=== PATIENT | male | born 1975 | race Caucasian/White ===

== ENCOUNTER 2018-02-24 14:37 | Observation (INO) | payer BC ==
[2018-02-24] MEDS ORDERED: Iopamidol 755 Mg/ML 100 ML Bottle IV ONE (14:44)
--- NOTE | 2018-02-24 15:31 | CT ---
INDICATION: Left lower quadrant abdominal pain times three days. CT ABDOMEN AND PELVIS WITH CONTRAST: Spiral 2.5 mm axial sections were obtained through the abdomen and pelvis with 100 mL Isovue 370 at 2 mL/second, no oral contrast was utilized. Examination was obtained 02/24/2018 and is compared with 03/02/2015. Total exam DLP = 1,371.45 mGy-cm. Lower lung amaya and pleural spaces visualized appeared normal. Liver, gallbladder, adrenals, kidneys, spleen, and pancreas were unremarkable, except to note some minimal fatty replacement of the pancreas, perhaps slightly regressive compared with the previous study. No retroperitoneal mass was seen. The appendix is absent, compatible with history of its removal. Descending and to a slightly greater extent sigmoid diverticulosis is noted with an area of diverticulitis at the proximal sigmoid colon. There is pericolonic fat stranding, compatible with localized peritonitis. No definite free air or abscess formation was identified - no perforation was suggested at this time. No obstruction of bowel was seen with gas and some stool in the rectosigmoid and rectal area. IMPRESSION: Proximal sigmoid diverticulitis with localized peritonitis. Report was called to Dr. Chapin Rausch at 1510 hours on 02/24/2018. Subsequently, the patient was taken to wait at the ER waiting room. RICHARD
--- NOTE | 2018-02-24 16:57 | PCM.HP ---
H&P History of Present Illness - General Date of Service: 02/24/18 Admit Problem/Dx: Admission Diagnosis/Problem Admission Diagnosis/Problem Diverticulitis Source of Information: Patient History Limitations: Reports: No Limitations - History of Present Illness Duration of Symptoms: Reports: Day(s): (3), Constant Location: Reports: Abdomen (LLQ) Quality: Reports: Sharp Severity: Moderate Improves with: Reports: None Worsens with: Reports: Movement Associated Symptoms: Denies: Fever/Chills, Nausea/Vomiting - Related Data Allergies/Adverse Reactions: Allergies Allergy/AdvReac Type Severity Reaction Status Date / Time No Known Allergies Allergy Verified 02/24/18 16:41 Home Medications: Home Meds Ibuprofen 600 mg PO Q6HR PRN 03/02/15 [History] Aspirin 325 mg PO DAILY #0 03/23/15 [Rx] Past Medical History Other Cardiovascular History: 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 LEFT LEG HX OF CLOTS. DEEP VEINS NOT FUNCTIONING PROPERLY - Past Surgical History Other Musculoskeletal Surgeries/Procedures:: dislocation of lt great toe H&P Review of Systems - Review of Systems: Review Of Systems: See Below General: Reports: No Symptoms. Denies: Fever, Chills HEENT: Reports: No Symptoms Pulmonary: Reports: No Symptoms Cardiovascular: Reports: No Symptoms Gastrointestinal: Reports: Abdominal Pain (LLQ) Genitourinary: Reports: No Symptoms Exam - Exam Exam: See Below - Vital Signs Vital Signs: Last Vital Signs Temp 98.8 F 02/24/18 15:23 Pulse Resp 18 02/24/18 15:23 BP 134/80 02/24/18 15:23 Pulse Ox 96 02/24/18 15:23 - Exam General: Alert, Oriented Lungs: Clear to Auscultation, Normal Respiratory Effort Cardiovascular: Regular Rate, Regular Rhythm GI/Abdominal Exam: Soft, Tender (in LLQ with guarding). No: Hernia, Mass - Patient Data Lab Results Last 24 hrs: Laboratory Results - last 24 hr 02/24/18 02/24/18 Range/Units 15:40 15:40 WBC 10.4 (4.5-12.0) X10-3/uL RBC 4.54 (4.30-5.75) x10(6)uL Hgb 13.8 (11.5-15.5) g/dL Hct 40.3 (30.0-51.3) % MCV 88.9 (80-96) fL MCH 30.4 (27.7-33.6) pg MCHC 34.2 (32.2-35.4) g/dL RDW 13.2 (11.5-15.5) % Plt Count 298 (125-369) X10(3)uL MPV 8.1 (7.4-10.4) fL Neut % (Auto) 76.7 (46-82) % Lymph % (Auto) 12.8 L (13-37) % [place] % (Auto) 8.3 (4-12) % Eos % (Auto) 1 (1.0-5.0) % Baso % (Auto) 2 (0-2) % Neut # (Auto) 7.9 (1.6-8.3) # Lymph # (Auto) 1.3 (0.6-5.0) # [place] # (Auto) 0.9 (0.0-1.3) # Eos # (Auto) 0.1 (0.0-0.8) # Baso # (Auto) 0.2 (0.0-0.2) # Sodium 137 (135-145) mmol/L Potassium 3.9 (3.5-5.3) mmol/L Chloride 102 (100-110) mmol/L Carbon Dioxide 27 (21-32) mmol/L BUN 8 (7-18) mg/dL Creatinine 0.8 (0.70-1.30) mg/dL Est Cr Clr Drug Dosing TNP Estimated GFR (MDRD) > 60 (>60) BUN/Creatinine Ratio 10.0 (9-20) Glucose 104 (80-116) mg/dL Calcium 8.5 L (8.6-10.2) mg/dL Total Bilirubin 0.7 (0.1-1.3) mg/dL AST 16 (5-25) IU/L ALT 37 H (12-36) U/L Alkaline Phosphatase 89 (56-112) IU/L Total Protein 6.9 (6.0-8.0) g/dL Albumin 3.6 (3.5-5.2) g/dL Globulin 3.3 g/dL Albumin/Globulin Ratio 1.1 Result Diagrams: 02/24/18 15:40 02/24/18 15:40 Imaging Impressions Last 24 hrs: CT scan shows diverticulitis - Problem List (1) Diverticulitis large intestine w/o perforation or abscess w/o bleeding SNOMED Code(s): 8112807 ICD Code: K57.32 - DVTRCLI OF LG INT W/O PERFORATION OR ABSCESS W/O BLEEDING Status: Acute Current Visit: Yes Onset Date: ~02/22/18 Problem List Initiated/Reviewed/Updated: Yes Orders Last 24hrs: Active Orders 24 hr Category Date Time Status Patient Status [ADT] Routine ADT 02/24/18 15:20 Active Nothing Per Oral Diet [DIET] Diet 02/24/18 Dinner Active Ketorolac [Toradol] Med 02/24/18 15:25 Active 30 mg IVPUSH Q6H PRN Lactated Ringers [Ringers, Lactated] 1,000 ml Med 02/24/18 15:30 Active IV ASDIRECTED Morphine Med 02/24/18 15:25 Active 2 mg IVPUSH Q2H PRN Piperacillin/Tazobactam [Zosyn] 3.375 gm Med 02/24/18 16:00 Active Sodium Chloride 0.9% [Normal Saline] 50 ml IV Q6H Medication Orders Lactated Ringer's (Ringers, Lactated) 1,000 mls @ 150 mls/hr IV ASDIRECTED [facility] Piperacillin Sod/Tazobactam (Sod 3.375 gm/ Sodium Chloride) 50 mls @ 100 mls/ hr IV Q6H [facility] Ketorolac Tromethamine (Toradol) 30 mg IVPUSH Q6H PRN PRN Reason: Pain Stop: 03/01/18 15:25 Morphine Sulfate (Morphine) 2 mg IVPUSH Q2H PRN PRN Reason: Pain Assessment/Plan Comment:: Diverticulitis Will admit fror IV antibiotics and pain control
[2018-02-24] MEDS: Ketorolac 30 MG/ML SDV IVPUSH PRN (17:39)
[2018-02-24] MEDS: Piperacillin/Tazobactam 3.375 GM in Sodium Chloride 0.9% 50 ML IV SCH ×2 (17:39→21:55)
[2018-02-24] MEDS: Morphine 10 MG/ML Syringe IVPUSH PRN ×2 (18:21→21:33)
[2018-02-24] MEDS: Lactated Ringers 1,000 ML IV SCH (18:21)
[2018-02-25] MEDS: Lactated Ringers 1,000 ML IV SCH ×4 (01:16→17:46)
[2018-02-25] MEDS: Morphine 10 MG/ML Syringe IVPUSH PRN (01:36)
[2018-02-25] MEDS: Piperacillin/Tazobactam 3.375 GM in Sodium Chloride 0.9% 50 ML IV SCH ×4 (04:01→21:47)
[2018-02-25] MEDS: Ketorolac 30 MG/ML SDV IVPUSH PRN ×3 (04:35→18:58)
--- NOTE | 2018-02-25 13:21 | PCM.PN ---
- General Info Date of Service: 02/25/18 Admission Dx/Problem (Free Text): Admission Diagnosis/Problem Admission Diagnosis/Problem Diverticulitis Functional Status: Reports: Pain Controlled, Tolerating Diet, Ambulating, Urinating - Review of Systems General: Reports: No Symptoms. Denies: Fever Pulmonary: Reports: No Symptoms Cardiovascular: Reports: No Symptoms Gastrointestinal: Reports: Abdominal Pain (improved ), Flatus (but no BM) - Patient Data Vitals - Most Recent: Last Vital Signs Temp 98.6 F 02/25/18 07:10 Pulse 66 02/25/18 07:10 Resp 18 02/25/18 07:10 BP 115/68 02/25/18 07:10 Pulse Ox 96 02/25/18 07:10 Weight - Most Recent: 98.067 kg I&O - Last 24 Hours: Intake & Output 02/24/18 02/25/18 02/25/18 22:59 06:59 14:59 Intake Total 655 1067 495 Balance 655 1067 495 Lab Results Last 24 Hours: Laboratory Results - last 24 hr 02/24/18 02/24/18 Range/Units 15:40 15:40 WBC 10.4 (4.5-12.0) X10-3/uL RBC 4.54 (4.30-5.75) x10(6)uL Hgb 13.8 (11.5-15.5) g/dL Hct 40.3 (30.0-51.3) % MCV 88.9 (80-96) fL MCH 30.4 (27.7-33.6) pg MCHC 34.2 (32.2-35.4) g/dL RDW 13.2 (11.5-15.5) % Plt Count 298 (125-369) X10(3)uL MPV 8.1 (7.4-10.4) fL Neut % (Auto) 76.7 (46-82) % Lymph % (Auto) 12.8 L (13-37) % [place] % (Auto) 8.3 (4-12) % Eos % (Auto) 1 (1.0-5.0) % Baso % (Auto) 2 (0-2) % Neut # (Auto) 7.9 (1.6-8.3) # Lymph # (Auto) 1.3 (0.6-5.0) # [place] # (Auto) 0.9 (0.0-1.3) # Eos # (Auto) 0.1 (0.0-0.8) # Baso # (Auto) 0.2 (0.0-0.2) # Sodium 137 (135-145) mmol/L Potassium 3.9 (3.5-5.3) mmol/L Chloride 102 (100-110) mmol/L Carbon Dioxide 27 (21-32) mmol/L BUN 8 (7-18) mg/dL Creatinine 0.8 (0.70-1.30) mg/dL Est Cr Clr Drug Dosing TNP Estimated GFR (MDRD) > 60 (>60) BUN/Creatinine Ratio 10.0 (9-20) Glucose 104 (80-116) mg/dL Calcium 8.5 L (8.6-10.2) mg/dL Total Bilirubin 0.7 (0.1-1.3) mg/dL AST 16 (5-25) IU/L ALT 37 H (12-36) U/L Alkaline Phosphatase 89 (56-112) IU/L Total Protein 6.9 (6.0-8.0) g/dL Albumin 3.6 (3.5-5.2) g/dL Globulin 3.3 g/dL Albumin/Globulin Ratio 1.1 Med Orders - Current: Current Medications Lactated Ringer's (Ringers, Lactated) 1,000 mls @ 150 mls/hr IV ASDIRECTED [facility] Last Admin: 02/25/18 08:31 Dose: 150 mls/hr Piperacillin Sod/Tazobactam (Sod 3.375 gm/ Sodium Chloride) 50 mls @ 100 mls/ hr IV Q6H [facility] Last Admin: 02/25/18 09:40 Dose: 100 mls/hr Sodium Chloride (Normal Saline) 250 mls @ 100 mls/hr IV ASDIRECTED [facility] Ketorolac Tromethamine (Toradol) 30 mg IVPUSH Q6H PRN PRN Reason: Pain Stop: 03/01/18 15:25 Last Admin: 02/25/18 11:10 Dose: 30 mg Morphine Sulfate (Morphine) 2 mg IVPUSH Q2H PRN PRN Reason: Pain Last Admin: 02/25/18 01:36 Dose: 2 mg Sodium Chloride (Saline Flush) 10 ml FLUSH ASDIRECTED PRN PRN Reason: Keep Vein Open Discontinued Medications Iopamidol (Isovue-370 (76%)) 100 ml IV . DIRECTED ONE Stop: 02/24/18 14:45 Last Admin: 02/24/18 15:06 Dose: 100 ml - Exam Lungs: Clear to Auscultation GI/Abdominal Exam: Soft, No Mass, Tender (in LLQ but improved from yesterday, no guarding) - Problem List & Annotations (1) Diverticulitis large intestine w/o perforation or abscess w/o bleeding SNOMED Code(s): 0140947 Code(s): K57.32 - DVTRCLI OF LG INT W/O PERFORATION OR ABSCESS W/O BLEEDING Status: Acute Current Visit: Yes Onset Date: ~02/22/18 - Problem List Review Problem List Initiated/Reviewed/Updated: Yes - My Orders Last 24 Hours: My Active Orders 02/24/18 15:20 Patient Status [ADT] Routine 02/24/18 15:25 Ketorolac [Toradol] 30 mg IVPUSH Q6H PRN Morphine 2 mg IVPUSH Q2H PRN 02/24/18 15:30 Lactated Ringers [Ringers, Lactated] 1,000 ml IV ASDIRECTED 02/24/18 16:00 Piperacillin/Tazobactam [Zosyn] 3.375 gm Sodium Chloride 0.9% [Normal Saline] 50 ml IV Q6H 02/24/18 17:09 Sequential Compression Device [OM.PC] Routine 02/24/18 18:30 Sodium Chloride 0.9% [Saline Flush] 10 ml FLUSH ASDIRECTED PRN 02/24/18 18:45 Sodium Chloride 0.9% [Normal Saline] 250 ml IV ASDIRECTED 02/24/18 18:52 Code Status [Resuscitation Status] Routine 02/24/18 Dinner Nothing Per Oral Diet [DIET] - Assessment Assessment:: Diverticulitis, improved - Plan Plan:: Diverticulitis Will admit fror IV antibiotics and pain control Will adv to full liquid diet
[2018-02-25] MEDS: Sodium Chloride 0.9% 10 ML Syringe FLUSH PRN ×2 (15:38→16:14)
[2018-02-25] MEDS: Sodium Chloride 0.9% 250 ML IV SCH (21:46)
[2018-02-26] MEDS: Lactated Ringers 1,000 ML IV SCH ×2 (00:51→09:42)
[2018-02-26 01:15] VITALS: BP 133/78
[2018-02-26] MEDS: Piperacillin/Tazobactam 3.375 GM in Sodium Chloride 0.9% 50 ML IV SCH ×3 (04:09→15:13)
[2018-02-26] MEDS: Sodium Chloride 0.9% 250 ML IV SCH (04:11)
[2018-02-26] MEDS: Ketorolac 30 MG/ML SDV IVPUSH PRN (07:42)
--- NOTE | 2018-02-26 15:45 | PCM.PN ---
- General Info Date of Service: 02/26/18 Admission Dx/Problem (Free Text): Admission Diagnosis/Problem Admission Diagnosis/Problem Diverticulitis Functional Status: Reports: Pain Controlled, Tolerating Diet, Ambulating - Review of Systems General: Reports: No Symptoms Gastrointestinal: Reports: Flatus, Other (Having stools) - Patient Data Vitals - Most Recent: Last Vital Signs Temp 98.3 F 02/26/18 07:30 Pulse 59 L 02/26/18 07:30 Resp 18 02/26/18 07:30 BP 133/78 02/26/18 01:00 Pulse Ox 95 02/26/18 07:30 Weight - Most Recent: 98.067 kg I&O - Last 24 Hours: Intake & Output 02/26/18 02/26/18 02/26/18 06:59 14:59 22:59 Intake Total 680 1255 Balance 680 1255 Med Orders - Current: Current Medications Lactated Ringer's (Ringers, Lactated) 1,000 mls @ 150 mls/hr IV ASDIRECTED [facility] Last Admin: 02/26/18 09:42 Dose: 150 mls/hr Piperacillin Sod/Tazobactam (Sod 3.375 gm/ Sodium Chloride) 50 mls @ 100 mls/ hr IV Q6H [facility] Last Admin: 02/26/18 15:13 Dose: 100 mls/hr Sodium Chloride (Normal Saline) 250 mls @ 100 mls/hr IV ASDIRECTED [facility] Last Admin: 02/26/18 04:11 Dose: 100 mls/hr Ketorolac Tromethamine (Toradol) 30 mg IVPUSH Q6H PRN PRN Reason: Pain Stop: 03/01/18 15:25 Last Admin: 02/26/18 07:42 Dose: 30 mg Morphine Sulfate (Morphine) 2 mg IVPUSH Q2H PRN PRN Reason: Pain Last Admin: 02/25/18 01:36 Dose: 2 mg Sodium Chloride (Saline Flush) 10 ml FLUSH ASDIRECTED PRN PRN Reason: Keep Vein Open Last Admin: 02/25/18 16:14 Dose: 10 ml Discontinued Medications Iopamidol (Isovue-370 (76%)) 100 ml IV . DIRECTED ONE Stop: 02/24/18 14:45 Last Admin: 02/24/18 15:06 Dose: 100 ml - Exam General: Oriented GI/Abdominal Exam: Soft, Tender (very minimal) - Problem List & Annotations (1) Diverticulitis large intestine w/o perforation or abscess w/o bleeding SNOMED Code(s): 5306555 Code(s): K57.32 - DVTRCLI OF LG INT W/O PERFORATION OR ABSCESS W/O BLEEDING Status: Acute Current Visit: Yes Onset Date: ~02/22/18 - Problem List Review Problem List Initiated/Reviewed/Updated: Yes - My Orders Last 24 Hours: My Active Orders 02/26/18 Lunch Regular Diet [DIET] - Assessment Assessment:: Diverticulitis, improved - Plan Plan:: Will discharge to home Diverticulitis Will admit fror IV antibiotics and pain control Will adv to full liquid diet
--- NOTE | 2018-02-26 15:51 | PCM.DCSUM1 ---
Discharge Summary - Hospital Course Brief History: Admitted for diverticultis 2 days ago and is feeling much better. Ready for discharge - Discharge Data Discharge Date: 02/26/18 Discharge Disposition: Home, Self-Care 01 Condition: Good - Discharge Diagnosis/Problem(s) (1) Diverticulitis large intestine w/o perforation or abscess w/o bleeding SNOMED Code(s): 9545102 ICD Code: K57.32 - DVTRCLI OF LG INT W/O PERFORATION OR ABSCESS W/O BLEEDING Status: Acute Current Visit: Yes Onset Date: ~02/22/18 - Patient Summary/Data Hospital Course: Pain improved within 24 hrs, started on po and advanced. Having flatus and stools - Patient Instructions Diet: Usual Diet as Tolerated Activity: As Tolerated - Discharge Plan Home Medications: Home Meds Ibuprofen 400 mg PO DAILY PRN 03/02/15 [History] Albuterol Sulfate [Proair Hfa] 2 puff IH Q4H PRN 02/25/18 [History] Patient Handouts: Diverticulitis, [id number] Referrals: Chapin Rausch MD [Physician] - (has f/u with or 03/05 at 315 pm) - Discharge Summary/Plan Comment DC Time >30 min.: Yes Discharge Summary/Plan Comment: Rx fro Cipro 500 mg bid and Flagyl 500 mg tis sent to [facility] for 10 days - Patient Data Vitals - Most Recent: Last Vital Signs Temp 98.3 F 02/26/18 07:30 Pulse 59 L 02/26/18 07:30 Resp 18 02/26/18 07:30 BP 133/78 02/26/18 01:00 Pulse Ox 95 02/26/18 07:30 Weight - Most Recent: 98.067 kg I&O - Last 24 hours: Intake & Output 02/26/18 02/26/18 02/26/18 06:59 14:59 22:59 Intake Total 680 1255 Balance 680 1255 Med Orders - Current: Current Medications Lactated Ringer's (Ringers, Lactated) 1,000 mls @ 150 mls/hr IV ASDIRECTED [facility] Last Admin: 02/26/18 09:42 Dose: 150 mls/hr Piperacillin Sod/Tazobactam (Sod 3.375 gm/ Sodium Chloride) 50 mls @ 100 mls/ hr IV Q6H [facility] Last Admin: 02/26/18 15:13 Dose: 100 mls/hr Sodium Chloride (Normal Saline) 250 mls @ 100 mls/hr IV ASDIRECTED [facility] Last Admin: 02/26/18 04:11 Dose: 100 mls/hr Ketorolac Tromethamine (Toradol) 30 mg IVPUSH Q6H PRN PRN Reason: Pain Stop: 03/01/18 15:25 Last Admin: 02/26/18 07:42 Dose: 30 mg Morphine Sulfate (Morphine) 2 mg IVPUSH Q2H PRN PRN Reason: Pain Last Admin: 02/25/18 01:36 Dose: 2 mg Sodium Chloride (Saline Flush) 10 ml FLUSH ASDIRECTED PRN PRN Reason: Keep Vein Open Last Admin: 02/25/18 16:14 Dose: 10 ml Discontinued Medications Iopamidol (Isovue-370 (76%)) 100 ml IV . DIRECTED ONE Stop: 02/24/18 14:45 Last Admin: 02/24/18 15:06 Dose: 100 ml
== END 2018-02-26 16:30 | disposition home or self-care (01) ==
LOC: FB.DI 14:37 → FB.MS 15:19
PROVIDERS: ADMIT Surgery; ATTEND Surgery
DX: K57.20 Diverticulitis of large intestine with perforation and abscess without bleeding (principal); Z79.82 Long term (current) use of aspirin
CPT/HCPCS: 36415; 74177; 80053; 85025; 96361; 96365; 96366; 96375; 96376; G0378; J1885; J2270; J2543; J7050; J7120; Q9967